=== PATIENT | female | born 1995 ===

== ENCOUNTER → 2018-08-23 | Outpatient (CLI) | payer SELFPAY ==
--- NOTE | 2018-08-23 14:41 | RADIOLOGY REPORT (SQ) ---
EXAM DESCRIPTION: U/S OB 14+ TRNABD 1GES W/O DOP COMPLETED DATE/TIME: 08/23/2018 1:52 pm REASON FOR STUDY: ENCTR FOR SUERVISION OF OTHER NORMAL , 2ND TRIMESTER (Z34.82) Z34.82 ENC OUNTER FOR SUPRVSN OF NORMAL , SECOND TRI COMPARISON: None. TECHNIQUE: Static and Dynamic grayscale imaging performed of gravid uterus using transabdominal appr oach. Additional selected color Doppler and spectral images recorded. All stored on PACS. LIMITATIONS: None. FINDINGS: FETUSES SEEN:1 EGA: 17 weeks 6 days Calculated using BPD,FL,HC,AC documented on images. SARAVANAN: 01/25/2019 EFW: 201 grams PERCENTILE: Not applicable. Fetus less than or equal to 20 weeks gestation. FERMÍN: Adequate amount. PLACENTA: Fundal GRADE: I PRESENTATION: Cephalic. ANATOMY: HEART RATE: 143 beats per minute. FOUR CHAMBER HEART: Visualized. THREE VESSEL CORD: Yes. CORD INSERTION: Visualized. KIDNEYS AND BLADDER: Visualized. Appear normal. STOMACH: Visualized. Appears normal. SPINE: Not well visualized. BRAIN AND LATERAL VENTRICLES: Visualized. Appear normal. OTHER: No other significant finding. MATERNAL ADNEXA: Maternal ovaries not visualized. CERVICAL LENGTH: 3.3 cm. Closed. OTHER: No other significant finding. IMPRESSION: LIVING INTRAUTERINE . ESTIMATED GESTATIONAL AGE 17 weeks 6 days. NO VISUALIZED ANOMALIES. Trimester of : Second trimester - 13 weeks 1 day to 27 weeks 6 days. TECHNICAL DOCUMENTATION: JOB ID: [id number] [email or web address]- All Rights Reserved Reading location - IP/workstation name: [email or web address]
== END ==
LOC: RAD 13:08
PROVIDERS: ATTEND Nurse Practitioner
DX: Z34.82 Encounter for supervision of other normal pregnancy, second trimester (principal)
CPT/HCPCS: 76805

== ENCOUNTER 2019-01-06 09:39 | Observation (INO) | payer MEDICAID ==
[2019-01-06] MEDS ORDERED: DEXTROSE 5%-LACTATED RINGERS 1,000 ML IV PRN (09:50)
[2019-01-06] MEDS ORDERED: TERBUTALINE SULFATE INJ/PF 1 MG/1 ML SDV ONE (10:33)
[2019-01-06 10:45] LABS: ABSOLUTE EOSINOPHILS # (AUTO) 0.1 10^3/uL (0.0-0.6); ABSOLUTE LYMPHOCYTES (AUTO) 1.7 10^3/uL (0.5-4.7); ABSOLUTE MONOCYTES (AUTO) 0.3 10^3/uL (0.1-1.4); BASOPHILS % (AUTO) 0.4 % (0-2); EOSINOPHILS % (AUTO) 0.8 % (0-6); HEMOGLOBIN 12.3 g/dL (12.0-15.5); LYMPHOCYTES % (AUTO) 24.2 % (13-45); MEAN CORPUSCULAR HEMOGLOBIN 30.1 pg (27.0-33.4); MEAN CORPUSCULAR HGB CONC 34.2 g/dL (32.0-36.0); MEAN CORPUSCULAR VOLUME 88 fl (80-97); MONOCYTES % (AUTO) 4.7 % (3-13); PLATELET COUNT 196 10^3/uL (150-450); RED CELL DISTRIBUTION WIDTH 13.9 % (11.5-14.0); SEGMENTED NEUTROPHILS % (AUTO) 69.9 % (42-78); TOTAL CELLS COUNTED % (AUTO) 100 %; WHITE BLOOD COUNT 7.1 10^3/uL (4.0-10.5)
[2019-01-06] MEDS ORDERED: TERBUTALINE SULFATE INJ/PF 1 MG/1 ML SDV SUBCUT ONE (11:00)
== END 2019-01-06 11:19 | disposition home or self-care (01) ==
LOC: LC 09:39 → LR 09:50 → LC 11:30
PROVIDERS: ADMIT Obstetrics & Gynecology; ATTEND Obstetrics & Gynecology
PROC: 4A1HXCZ Monitoring of Products of Conception, Cardiac Rate, External Approach (ICD-10-PCS; principal; 2019-01-06)
DX: O32.1XX0 Maternal care for breech presentation, not applicable or unspecified (principal); Z3A.37 37 weeks gestation of pregnancy
CPT/HCPCS: 59025; 86900; 86901; 36415; 86850; 85025; J3105

== ENCOUNTER 2019-01-07 14:57 | Outpatient (CLI) | payer MEDICAID ==
--- NOTE | 2019-01-07 15:49 | Non Stress Test Report ---
Non Stress Test Datetime Report Generated by CPN: 01/07/2019 15:49 DEMOGRAPHIC EGA NST: 37.3 INDICATION Indication for Study (NST) Other: repeat NST VITAL SIGNS Temperature - NST: 98.2 Pulse - NST: 87 RESP - NST: 15 NBPSYS NST: 111 NBPDIA NST: 55 MONITORING Monitor Explained: Monitor Explained; Test Explained; Patient Verbalized Understanding Time on Monitor: 01/07/2019 15:06 Time off Monitor: 01/07/2019 15:42 NST Duration: 36 NST INTERVENTIONS NST Interventions: None Physician Notified NST: A Rdz CNM BABY A: [id number] BABY A Movement : Present Contraction Frequency : none FHR Baseline : 120 Accelerations : 15X15 Decelerations : None Variability : Moderate 6-25bpm NST Review: Meets Criteria for Reactive NST NST Review and Verified By : James Patel RN NST Results: Reactive NST REPORT Report Trigger: Send Report
== END 2019-01-07 15:46 | disposition home or self-care (01) ==
LOC: LC 14:57
PROVIDERS: ATTEND Obstetrics & Gynecology Gynecology
PROC: 4A1HXCZ Monitoring of Products of Conception, Cardiac Rate, External Approach (ICD-10-PCS; principal; 2019-01-07)
DX: O32.1XX0 Maternal care for breech presentation, not applicable or unspecified (principal); Z3A.37 37 weeks gestation of pregnancy
CPT/HCPCS: 59025

== ENCOUNTER 2019-01-14 18:01 | Outpatient (CLI) | payer MEDICAID ==
--- NOTE | 2019-01-14 18:34 | Non Stress Test Report ---
Non Stress Test Datetime Report Generated by CPN: 01/14/2019 18:34 DEMOGRAPHIC EGA NST: 38.3 MONITORING Monitor Explained: Monitor Explained; Test Explained; Patient Verbalized Understanding Time on Monitor: 01/14/2019 18:06 Time off Monitor: 01/14/2019 18:31 NST Duration: 25 NST INTERVENTIONS NST Interventions: PO Hydration; Reposition Patient Physician Notified NST: Dr Luis Alferdo BABY A: [id number] BABY A Movement : Present Contraction Frequency : 0 FHR Baseline : 115 Accelerations : 15X15 Decelerations : None Variability : Moderate 6-25bpm NST Review: Meets Criteria for Reactive NST NST Review and Verified By : Rosario Camp RNC NST Results: Reactive NST REPORT Report Trigger: Send Report
== END 2019-01-14 18:35 | disposition home or self-care (01) ==
LOC: LC 18:01
PROVIDERS: ATTEND Obstetrics & Gynecology
PROC: 4A1HXCZ Monitoring of Products of Conception, Cardiac Rate, External Approach (ICD-10-PCS; principal; 2019-01-14)
DX: O36.5930 Maternal care for other known or suspected poor fetal growth, third trimester, not applicable or unspecified (principal); Z3A.38 38 weeks gestation of pregnancy
CPT/HCPCS: 59025

== ENCOUNTER 2019-01-20 20:34 | Inpatient (IN) | payer MEDICAID ==
[2019-01-20 21:06] LABS: APPEARANCE,URINE CLOUDY; BILIRUBIN,URINE NEGATIVE (NEGATIVE); COLOR,URINE YELLOW; GLUCOSE, URINE NEGATIVE (NEGATIVE); KETONES,URINE NEGATIVE (NEGATIVE); LEUKOCYTE ESTERASE,URINE LARGE (NEGATIVE); NITRITE,URINE NEGATIVE (NEGATIVE); PROTEIN,URINE NEGATIVE (NEGATIVE); URINE SPECIFIC GRAVITY 1.021
[2019-01-20 21:26] LABS: URINE AMPHETAMINES SCREEN NEGATIVE; URINE BARBITURATES SCREEN NEGATIVE; URINE BENZODIAZEPINES SCREEN NEGATIVE; URINE COCAINE SCREEN NEGATIVE; URINE MARIJUANA (THC) SCREEN NEGATIVE; URINE METHADONE SCREEN NEGATIVE; URINE PHENCYCLIDINE SCREEN NEGATIVE
[2019-01-20 22:01] LABS: ABSOLUTE EOSINOPHILS # (AUTO) 0.1 10^3/uL (0.0-0.6); ABSOLUTE LYMPHOCYTES (AUTO) 2.4 10^3/uL (0.5-4.7); ABSOLUTE MONOCYTES (AUTO) 0.6 10^3/uL (0.1-1.4); ABSOLUTE NEUT (AUTO) 5.9 10^3/uL (1.7-8.2); BASOPHILS % (AUTO) 0.4 % (0-2); EOSINOPHILS % (AUTO) 1.1 % (0-6); HEMATOCRIT 35.5 % (36.0-47.0); HEMOGLOBIN 12.1 g/dL (12.0-15.5); LYMPHOCYTES % (AUTO) 26.8 % (13-45); MEAN CORPUSCULAR HEMOGLOBIN 30.1 pg (27.0-33.4); MEAN CORPUSCULAR HGB CONC 34.2 g/dL (32.0-36.0); MEAN CORPUSCULAR VOLUME 88 fl (80-97); MONOCYTES % (AUTO) 6.3 % (3-13); PLATELET COUNT 200 10^3/uL (150-450); RED BLOOD COUNT 4.04 10^6/uL (3.72-5.28); RED CELL DISTRIBUTION WIDTH 13.3 % (11.5-14.0); SEGMENTED NEUTROPHILS % (AUTO) 65.4 % (42-78); TOTAL CELLS COUNTED % (AUTO) 100 %
[2019-01-20] MEDS ORDERED: OXYTOCIN 10 UNIT/ML VIAL ONE (22:40)
[2019-01-20] MEDS ORDERED: MISOPROSTOL 0.2 MG TABLET ONE (22:40)
[2019-01-20] MEDS ORDERED: ONDANSETRON HCL INJ/PF 4 MG/2 ML SDV ONE (22:40)
[2019-01-20] MEDS ORDERED: OXYTOCIN/NORMAL SALINE 20 UNIT/1,000 ML RTUINJ ONE (22:41)
[2019-01-20] MEDS ORDERED: LIDOCAINE 1% INJ-PF (10 MG/ML) 30 ML SDV ONE (22:41)
[2019-01-20] MEDS ORDERED: FENTANYL/BUPIVACAINE/NS/PF 300 MCG/150 ML RTUINJ EPI ONE (22:48)
[2019-01-20] MEDS ORDERED: EPHEDRINE SULFATE INJ 50 MG/1 ML AMPULE ONE (22:48)
[2019-01-20] MEDS ORDERED: BUPIVACAINE HCL 0.25 % INJ/PF (2.5 MG/1 ML) 30 ML VIAL ONE (22:49)
[2019-01-21] MEDS ORDERED: PROMETHAZINE HCL 25 MG TABLET PO PRN (02:33)
[2019-01-21] MEDS ORDERED: PSEUDOEPHEDRINE HCL 30 MG TABLET PO PRN (02:33)
[2019-01-21] MEDS ORDERED: PROMETHAZINE HCL INJ 25 MG/1 ML VIAL IV PRN (02:33)
[2019-01-21] MEDS ORDERED: DIPHENHYDRAMINE HCL 25 MG CAPSULE PO PRN (02:33)
[2019-01-21] MEDS ORDERED: PROMETHAZINE HCL 25 MG SUPP.RECT PR PRN (02:33)
[2019-01-21] MEDS ORDERED: BENZOCAINE/MENTHOL AEROSOL SPRAY 56 ML TOP PRN (02:33)
[2019-01-21] MEDS ORDERED: GLYCERIN/WITCH HAZEL LEAF 1 EACH MED..WIPE TP PRN (02:33)
[2019-01-21] MEDS ORDERED: ACETAMINOPHEN WITH CODEINE #3 TABLET PO PRN ×2 (02:33)
[2019-01-21] MEDS ORDERED: MAGNESIUM HYDROXIDE SUSP 30 ML UDCUP PO PRN (02:33)
[2019-01-21] MEDS ORDERED: OXYTOCIN/NORMAL SALINE 20 UNIT/1,000 ML RTUINJ IV PRN (02:33)
[2019-01-21] MEDS ORDERED: NA PHOS,M-B/NA PHOS,DI-BA (ADULT) 133 ML ENEMA PR PRN (02:33)
[2019-01-21] MEDS ORDERED: MEASLES,MUMPS&RUBELLA VACC/PF 0.5 ML VIAL SUBCUT PRN (02:33)
[2019-01-21] MEDS ORDERED: ACETAMINOPHEN 650 MG SUPP.RECT PR PRN (02:33)
[2019-01-21] MEDS ORDERED: DIPH/PERTUSS(ACELL)/TETANUS VAC/PF 0.5 ML SYR (>=10YO) IM PRN (02:33)
[2019-01-21] MEDS ORDERED: DIBUCAINE 1% OINTMENT 56 GM TP PRN (02:33)
--- NOTE | 2019-01-21 02:43 | Admission Physical ---
Datetime Report Generated by CPN: 01/21/2019 02:43 CURRENT ADMISSION Chief Complaint: Uterine Contractions Admit Impression : Term, Intrauterine ; Active Labor; Ruptured Membranes Admit Plan: Admit to Unit; Initiate Labor Protocol ALLERGIES Medication Allergies: Unknown Medication Allergies: No Known Allergies (01/07/2019) Latex: No Latex Allergies Food Allergies: none Environmental Allergies: none OBSTETRICAL HISTORY EDC: 01/25/2019 00:00 : 3 Para: 1 Term: 1 : 1 SAB: 0 IAB: 0 Ectopic: 0 Livin Cesareans: 0 VBACs: 0 Multiple Births: 1 Gestational Diabetes: No Rh Sensitization: No Incompetent Cervix: No OLY: No Infertility: No ART Treatment: No Uterine Anomaly: No IUGR: Yes Hx Previous C/S: No Macrosomia: No Hx Loss/Stillborn: No PIH: No Hx : Yes Placenta Previa/Abruption: No Depression/PP Depression: No PTL/PROM: No Post Hemorrhage: No Current Procedures: Ultrasound; NST Obstetrical History Comments: saw MFM for IUGR now released baby over 6 pounds SEE RECORDS Alcohol: No Marijuana : No Cocaine: No Other Illicit Drugs: No Cigarettes: Former Smoker. 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 Surgery: No Heart Disease: No Hosp/Surgery: Yes Autoimmune Disorder: No Anesthetic Complications: No Kidney Disease: Yes Abnormal Pap Smear: No Neuro/Epilepsy: No Psychiatric Disorders: No Other Medical Diseases: No Hepatitis/Liver Disease: No Significant Family History: No Varicosities/Phlebitis: No Trauma/Violence : No Thyroid Dysfunction: No Medical History Comments: childbirth 2011 and 2014/hx of UTI INFECTIOUS HISTORY Gonorrhea: No Genital Herpes: No Chlamydia: No Tuberculosis: No Syphilis: No Hepatitis: No HIV/AIDS Exposure: No Rash or Viral Illness: No HPV: No PHYSICAL EXAM General: Normal HEENT: Normal Neurologic: Normal Thyroid: Normal Heart: Normal Lungs: Normal Breast: Normal Back: Normal Abdomen: Normal Genitourinary Exam: Normal Extremities: Normal DTRs: Normal Pelvic Type: Adequate Vital Signs: Reviewed; Within Normal Limits VAGINAL EXAM Dilatation: 4 Effacement: 50 Station: -2 Contraction Comments: Regular MEMBRANES Pooling: Positive Membranes: Ruptured Amniotic Fluid Color: Clear FETUS A EGA: 39.2 Monitoring: External US FHR- Baseline: 135 Variability: Moderate 6-25bpm Accelerations: 15X15 Decelerations: None FHR Category: Category I Presentation: Vertex Admit Comment: Regular painful contractions in active labor Admit to LDR NPO and IVF GBS negative Hx 2 prior , anticipate Desires epidural when needed. PLANS FOR LABOR AND DELIVERY Labor and Delivery: None Pain Management: Natural Feeding Preference: Formula Benefit of Breast Feed Discussed: Yes Circumcision: N/A INFORMED CONSENT Informed Consent Obtained: Vaginal Delivery; Section Delivery; Vacuum/Forceps Assist; Risks, Benefits and Alternatives Discussed Signature: with User ID: Isabela : with User ID: Isabela
[2019-01-21] MEDS ORDERED: INFLUENZA QUAD (6MOS+) 2019-20 VAC 0.5 ML SYR IM ONE (05:26)
[2019-01-21] MEDS: IBUPROFEN 800 MG TABLET PO SCH ×4 (05:52→22:19)
[2019-01-21] MEDS: FERROUS SULFATE 325 MG TABLET PO SCH ×2 (09:10→18:07)
[2019-01-21] MEDS: SENNOSIDES/DOCUSATE 8.6-50 MG 1 EACH TABLET PO SCH (09:10)
[2019-01-21] MEDS: PRENATAL VITAMIN W DHA CAPSULE PO SCH (09:10)
[2019-01-21] MEDS: DOCUSATE SODIUM 100 MG CAPSULE PO SCH ×2 (09:10→18:07)
[2019-01-21] MEDS: FAMOTIDINE 20 MG TABLET PO SCH ×2 (09:10→22:20)
--- NOTE | 2019-01-21 09:20 | PDOC PROGRESS REPORT ---
Subjective-OB Progress Note for:: 01/21/19 - Delivery day, doing well, up to void, bottlefeeding Physical Exam (OB) Vital Signs: Temp Pulse Resp BP Pulse Ox 97.9 F 73 16 104/62 100 01/21/19 07:29 01/21/19 07:29 01/21/19 07:29 01/21/19 07:29 01/21/19 07:29 Intake & Output 01/20/19 01/21/19 01/22/19 06:59 06:59 06:59 Weight 63.1 kg - General General Appearance: Appears well, Alert In distress: None - Lochia Lochia Amount: Scant < 10 ml Lochia Color: Rubra/Red - Abdomen Description: Soft, Round Hernia Present: No Fundal Description: Firm, Midline Fundal Height: u/u - u/2 - Respiratory Respiratory Status: No respiratory distress - Genitourinary Genitourinary Note: voiding - Psychological Associated symptoms: Normal affect, Normal mood Objective-Diagnostic Laboratory: 01/20/19 21:49 01/20/19 01/20/19 01/20/19 20:40 21:49 21:49 WBC 9.0 RBC 4.04 Hgb 12.1 Hct 35.5 L MCV 88 MCH 30.1 MCHC 34.2 RDW 13.3 Plt Count 200 Seg Neutrophils % 65.4 Urine Color YELLOW Urine Appearance CLOUDY Urine pH 6.0 Ur Specific [place] 1.021 Urine Protein NEGATIVE Urine Glucose (UA) NEGATIVE Urine Ketones NEGATIVE Urine Blood SMALL H Urine Nitrite NEGATIVE Ur Leukocyte Esterase LARGE H Blood Type O POSITIVE Antibody Screen NEGATIVE Assessment and Plan(PN) - Assessment and Plan (1) Delivery normal Is this a current diagnosis for this admission?: Yes (2) Qualifiers: Weeks of gestation: unspecified Qualified Code(s): Z34.90 - Encounter for supervision of normal , unspecified, unspecified trimester Is this a current diagnosis for this admission?: Yes Plan:: Ambulation encourged, Routine PP orders - Time Spent with Patient Time with patient: Less than 15 minutes Medications reviewed and adjusted accordingly: Yes - Disposition Anticipated Discharge: Home Within: within 48 hours
[2019-01-22] MEDS: IBUPROFEN 800 MG TABLET PO SCH (06:11)
[2019-01-22 06:50] LABS: HEMATOCRIT 34.2 % (36.0-47.0); HEMOGLOBIN 11.4 g/dL (12.0-15.5); MEAN CORPUSCULAR HEMOGLOBIN 29.9 pg (27.0-33.4); MEAN CORPUSCULAR HGB CONC 33.4 g/dL (32.0-36.0); MEAN CORPUSCULAR VOLUME 89 fl (80-97); PLATELET COUNT 171 10^3/uL (150-450); RED BLOOD COUNT 3.82 10^6/uL (3.72-5.28); RED CELL DISTRIBUTION WIDTH 13.7 % (11.5-14.0); WHITE BLOOD COUNT 7.6 10^3/uL (4.0-10.5)
[2019-01-22 07:50] VITALS: BP 109/65
[2019-01-22] MEDS: DOCUSATE SODIUM 100 MG CAPSULE PO SCH (09:22)
[2019-01-22] MEDS: PRENATAL VITAMIN W DHA CAPSULE PO SCH (09:22)
[2019-01-22] MEDS: FERROUS SULFATE 325 MG TABLET PO SCH (09:22)
[2019-01-22] MEDS: FAMOTIDINE 20 MG TABLET PO SCH (09:22)
[2019-01-22] MEDS: SENNOSIDES/DOCUSATE 8.6-50 MG 1 EACH TABLET PO SCH (09:22)
--- NOTE | 2019-01-22 09:49 | PDOC DISCHARGE SUMMARY ---
Impression - Admit/DC Date/PCP Admission Date/Primary Care Provider: 01/20/19 21:14 ADI DEJESUS MD Discharge Date: 01/22/19 - PP Day #1, doing well, desires to go home today. O+, Rubella Immune, Bottlefeeding. Up out of bed, amublating - Discharge Diagnosis (1) Delivery normal Is this a current diagnosis for this admission?: Yes (2) Is this a current diagnosis for this admission?: Yes (3) Normal course Is this a current diagnosis for this admission?: Yes - Additional Information Resuscitation Status: Full Code Discharge Diet: As Tolerated, Regular Discharge Activity: Activity As Tolerated, No Lifting Over 10 Pounds, Pelvic Rest Referrals: ADI DEJESUS MD [Primary Care Provider] - Prescriptions: Ibuprofen [Motrin 800 mg Tablet] 800 mg PO Q8 #60 tablet Home Medications: Ibuprofen [Motrin 800 mg Tablet] 800 mg PO Q8 #60 tablet 01/22/19 Vit/Dha [ Multi + Dha Capsule] 1 cap PO DAILY capsule 01/22/19 HPI Reason(s) for Admission: Onset of Labor Procedures: Ultrasound Intrapartum Procedure(s): Spontaneous Vaginal Delivery Hospital Course Hospital Course: routine Results Laboratory Results: WBC 7.6 10^3/uL (4.0-10.5) 01/22/19 06:05 RBC 3.82 10^6/uL (3.72-5.28) 01/22/19 06:05 Hgb 11.4 g/dL (12.0-15.5) L 01/22/19 06:05 Hct 34.2 % (36.0-47.0) L 01/22/19 06:05 MCV 89 fl (80-97) 01/22/19 06:05 MCH 29.9 pg (27.0-33.4) 01/22/19 06:05 MCHC 33.4 g/dL (32.0-36.0) 01/22/19 06:05 RDW 13.7 % (11.5-14.0) 01/22/19 06:05 Plt Count 171 10^3/uL (150-450) 01/22/19 06:05 Lymph % (Auto) 26.8 % (13-45) 01/20/19 21:49 Maverick % (Auto) 6.3 % (3-13) 01/20/19 21:49 Eos % (Auto) 1.1 % (0-6) 01/20/19 21:49 Baso % (Auto) 0.4 % (0-2) 01/20/19 21:49 Absolute Neuts (auto) 5.9 10^3/uL (1.7-8.2) 01/20/19 21:49 Absolute Lymphs (auto) 2.4 10^3/uL (0.5-4.7) 01/20/19 21:49 Absolute Monos (auto) 0.6 10^3/uL (0.1-1.4) 01/20/19 21:49 Absolute Eos (auto) 0.1 10^3/uL (0.0-0.6) 01/20/19 21:49 Absolute Basos (auto) 0.0 10^3/uL (0.0-0.2) 01/20/19 21:49 Seg Neutrophils % 65.4 % (42-78) 01/20/19 21:49 Urine Color YELLOW 01/20/19 20:40 Urine Appearance CLOUDY 01/20/19 20:40 Urine pH 6.0 (5.0-9.0) 01/20/19 20:40 Ur Specific [place] 1.021 01/20/19 20:40 Urine Protein NEGATIVE mg/dL (NEGATIVE) 01/20/19 20:40 Urine Glucose (UA) NEGATIVE mg/dL (NEGATIVE) 01/20/19 20:40 Urine Ketones NEGATIVE mg/dL (NEGATIVE) 01/20/19 20:40 Urine Blood SMALL (NEGATIVE) H 01/20/19 20:40 Urine Nitrite NEGATIVE (NEGATIVE) 01/20/19 20:40 Urine Bilirubin NEGATIVE (NEGATIVE) 01/20/19 20:40 Urine Urobilinogen 4.0 mg/dL (<2.0) H 01/20/19 20:40 Ur Leukocyte Esterase LARGE (NEGATIVE) H 01/20/19 20:40 Urine Ascorbic Acid NEGATIVE (NEGATIVE) 01/20/19 20:40 Urine Opiates Screen NEGATIVE 01/20/19 20:40 Urine Methadone Screen NEGATIVE 01/20/19 20:40 Ur Barbiturates Screen NEGATIVE 01/20/19 20:40 Ur Phencyclidine Scrn NEGATIVE 01/20/19 20:40 Ur Amphetamines Screen NEGATIVE 01/20/19 20:40 U Benzodiazepines Scrn NEGATIVE 01/20/19 20:40 Urine Cocaine Screen NEGATIVE 01/20/19 20:40 U Marijuana (THC) Screen NEGATIVE 01/20/19 20:40 RPR NONREACTIVE (NONREACTIVE) 01/20/19 21:49 Blood Type O POSITIVE 01/20/19 21:49 Antibody Screen NEGATIVE 01/20/19 21:49 Plan Health Concerns: none Plan of Treatment: D/c to home, f/u with [facility] in 4 wks for PP check Time Spent: Less than 30 Minutes
--- NOTE | 2019-01-25 13:38 | Delivery Summary ---
Del Sum A-C Datetime Report Generated by CPN: 01/25/2019 13:37 DELIVERY PERSONNEL DELIVERY PERSONNEL: [id number] Delivery Doctor:: Freida Durham MD Labor and Delivery Nurse:: TINA Nam Labor and Delivery Nurse:: Gypsy Liu RN Cnc Machine Setter/PLANT PHYSIOLOGY TEACHER: Mickinellie Ramos, ST MATERNAL INFORMATION Delivery Anesthesia: Epidural Medications After Delivery: Pitocin Bolus-Please Comment Estimated Blood Loss (ml): 150 Maternal Complications: None Complication Details: arm cord Provider Comments: Called to patients room as she was pushing and delivering. The head was delivering as I entered the room. THe shoulders and rest of the body followed easily. Infant was vigorous. COrd was clamped and cut. Infant placed on mothers chest. BOth stable condition LABOR SUMMARY EDC: 01/25/2019 00:00 No. Babies in Womb: 1 Attempted: No Labor Anesthesia: Epidural LABOR INFORMATION Reason for Induction: Not Applicable Onset of Labor: 01/20/2019 16:00 Complete Dilatation: 01/21/2019 01:30 Oxytocin: N/A Group B Beta Strep: neg Antibiotics # of Doses: 0 Antibiotics Time of Last Dose: 0 Name of Antibiotic Given: 0 Steroids Given: None Reason Steroids Not Administered: Not Applicable MEMBRANES Membranes Rupture Method: Spontaneous Rupture of Membranes: 01/21/2019 01:30 Length of Rupture (hr): 0.12 Amniotic Fluid Color: Clear Amniotic Fluid Amount: Moderate Amniotic Fluid Odor: None STAGES OF LABOR Stage 1 hr: 9 Stage 1 min: 30 Stage 2 hr: 0 Stage 2 min: 7 Stage 3 hr: 0 Stage 3 min: 3 Total Time in Labor hr: 9 Total Time in Labor min: 40 VAGINAL DELIVERY Episiotomy: None Laceration #1: None Laceration Extension #1: N/A Laceration Repair: Not Applicable Sponge Count Correct: N/A Sharps Count Correct: N/A BABY A INFORMATION Delivery Date/Time: 01/21/2019 01:37 Method of Delivery: Vaginal Born in Route : No : N/A Forceps: N/A Vacuum Extraction: N/A Shoulder Dystocia : No PRESENTATION/POSITION BABY A Presentation: Cephalic Cephalic Presentation: Vertex Vertex Position: Left Occipital Anterior Breech Presentation: N/A PLACENTA INFORMATION BABY A Placenta Delivery Time : 01/21/2019 01:40 Placenta Method of Delivery: Spontaneous Placenta Status: Delivered SCORES BABY A Heart Rate 1 min: >100 bpm Resp Effort 1 min: Good Cry Reflex Irritability 1 min: Cough or Sneeze or Pulls Away Muscle Tone 1 min: Active Motion Color 1 min: Body [place], Extremities Blue Resuscitation Effort 1 min: Tactile Stimulation SCORE 1 MIN: 9 Heart Rate 5 min: >100 bpm Resp Effort 5 min: Good Cry Reflex Irritability 5 min: Cough or Sneeze or Pulls Away Muscle Tone 5 min: Active Motion Color 5 min: Body [place], Extremities Blue Resuscitation Effort 5 min: Tactile Stimulation SCORE 5 MIN: 9 INFANT INFORMATION BABY A Gestational Age at Delivery: 39.0 Gestational Status: Full Term- 39- 40.6 Weeks Outcome : Liveborn Infant Condition : Stable Infant Sex: Female IDENTIFICATION BABY A Verification Date/Time: 01/21/2019 02:02 ID Band Number: [id number] Mother's Name Verified: Yes Infant RN Verifying : D Adam RN/J Field RN WEIGHT/LENGTH BABY A Birthweight (gm): 2690 Infant Weight (lb): 5 Infant Weight (oz): 15 Length (in): 19.00 Infant Length (cm): 48.26 CORD INFORMATION BABY A No. Cord Vessels: 3 Nuchal Cord : N/A Cord Blood Taken: Yes-For Eval (Mom's Blood Type - or O+) Infant Suction: None ASSESSMENT BABY A Infant Complications: None Physical Findings at Delivery: Within Normal Limits Infant Respirations: Appears Normal Skin to Skin: Yes Skin to Skin Time (min): 30 Linux Admin/ALS Called : No Care By: Killian Liu RN Transferred To: Remains with Mother BABY B INFORMATION : N/A SIGNATURES Signature: with User ID: Isabela : with User ID: [email or web address]
== END 2019-01-22 14:30 | disposition home or self-care (01) | DRG 807 ==
LOC: LC 20:34 → LR 21:14 → 2S 01-21 04:14
PROVIDERS: ADMIT Obstetrics & Gynecology; ATTEND Obstetrics & Gynecology
PROC: 10E0XZZ Delivery of Products of Conception, External Approach (ICD-10-PCS; principal; 2019-01-21)
DX: O69.89X0 Labor and delivery complicated by other cord complications, not applicable or unspecified (principal); Z37.0 Single live birth; Z28.21 Immunization not carried out because of patient refusal; Z3A.39 39 weeks gestation of pregnancy
CPT/HCPCS: 36415; 80307; 81005; 85025; 85027; 86592; 86850; 86900; 86901; 90715; 94760; J2405; J2590; J3010; J3490